=== PATIENT | male | born 1970 | race Asian ===

== ENCOUNTER 2024-02-01 15:46 | Outpatient (RCR) | payer OTHER, SELFPAY | END 2024-02-01 23:59 | disposition home or self-care (01) | LOC: ROT 15:46 | PROVIDERS: FAMILY PHYSICIAN Family Medicine | DX: Z47.89 Encounter for other orthopedic aftercare (principal); M79.641 Pain in right hand; Z73.6 Limitation of activities due to disability; M79.89 Other specified soft tissue disorders; M62.81 Muscle weakness (generalized) | CPT/HCPCS: 97166; 97535 ==

== ENCOUNTER 2024-02-29 15:55 | Outpatient (RCR) | payer OTHER, SELFPAY | END 2024-02-29 23:59 | disposition home or self-care (01) | LOC: ROT 15:55 | PROVIDERS: ATTENDING PHYSICIAN Orthopaedic Surgery Hand Surgery; FAMILY PHYSICIAN Family Medicine | DX: Z47.89 Encounter for other orthopedic aftercare (principal); M79.641 Pain in right hand | CPT/HCPCS: 97010; 97022; 97110; 97140; 97760 ==

== ENCOUNTER → 2024-05-05 08:58 | Outpatient (REF) | payer OTHER, SELFPAY | LOC: RAD 08:58 | PROVIDERS: ATTENDING PHYSICIAN Family Medicine | DX: R93.89 Abnormal findings on diagnostic imaging of other specified body structures (principal) | CPT/HCPCS: 71250 ==

== ENCOUNTER → 2024-07-28 09:16 | Outpatient (REF) | payer OTHER, BC, SELFPAY | LOC: RCS 09:16 | PROVIDERS: ATTENDING PHYSICIAN Internal Medicine Cardiovascular Disease; FAMILY PHYSICIAN Family Medicine | DX: I77.810 Thoracic aortic ectasia (principal) | CPT/HCPCS: 93306 ==

== ENCOUNTER → 2025-04-18 14:41 | Outpatient (REF) | payer OTHER, BC, SELFPAY | LOC: HWRAD 14:41 | PROVIDERS: ATTENDING PHYSICIAN Family Medicine | DX: R93.89 Abnormal findings on diagnostic imaging of other specified body structures (principal) | CPT/HCPCS: 71250 ==